=== PATIENT | male | born 1955 | race Caucasian/White ===

== ENCOUNTER 2018-02-05 18:54 | Emergency (ER) | payer OTHER ==
[2018-02-05 19:11] VITALS: O2SAT 97
[2018-02-05] MEDS ORDERED: SODIUM CHLORIDE 0.9% (FLUSH) 10 ML SYG IV PRN (19:11)
[2018-02-05] MEDS ORDERED: SODIUM CHLORIDE 0.9% 1000ML 1,000 ML IVS ONE ×2 (19:23→19:44)
[2018-02-05] MEDS ORDERED: ONDANSETRON INJ 4 MG/2 ML VIAL IV ONE (19:23)
--- NOTE | 2018-02-05 20:00 | RAD ---
EXAM DESCRIPTION: Chest,1 View CLINICAL HISTORY: chest pain COMPARISON: None. FINDINGS: A few calcified nodules measure 4 mm in the right lung. Cardiac silhouette is within normal limits. There is no focal parenchymal or pleural disease. Visualized osseous structures are within normal limits. IMPRESSION: No evidence of acute cardiopulmonary disease. Electronically signed by: Eyad Rm 02/05/2018 7:58 PM CDT
[2018-02-05] MEDS ORDERED: MORPHINE SULFATE INJ 10 MG/ML VIAL IV ONE (20:30)
--- NOTE | 2018-02-05 21:00 | ED.PDOC ---
History of Present Illness - General Chief Complaint: Exposure to Heat or Cold Stated Complaint: over heated dizzy and chest pain Time Seen by Provider: 02/05/18 19:22 Source: patient, RN notes reviewed, Vital Signs reviewed Exam Limitations: no limitations - History of Present Illness Timing/Duration: 4-6 hours Severity: moderate Improving Factors: rest Worsening Factors: movement Associated Symptoms: chest pain, headaches, malaise, nausea/vomiting, shortness of breath, weakness, other - pt reports that he was outside today at 2 pm until coming to the ED. Started to have sob, dizziness, generalized weakness and cotton mouth. Startes that feels like previous time he had heat exposure. Since cooling down has started to feel improved. Allergies/Adverse Reactions: Allergies Ampicillin Adverse Reaction (Intermediate, Verified 02/05/18 19:06) Review of Systems - Review of Systems Constitutional: States: weakness - non focal EENTM: States: no symptoms reported Respiratory: States: short of breath Cardiology: States: chest pain Gastrointestinal/Abdominal: States: nausea Musculoskeletal: States: muscle pain Skin: States: no symptoms reported Neurological: States: headache, weakness - generalized weakness, other - dizziness Endocrine: States: no symptoms reported Hematologic/Lymphatic: States: no symptoms reported Past Medical History (General) - Patient Medical History Hx Seizures: No Hx Stroke: No Hx Dementia: No Hx Asthma: No Hx of COPD: No Hx Cardiac Disorders: No Hx Congestive Heart Failure: No Hx Pacemaker: No Hx Hypertension: No Hx Thyroid Disease: No Hx Diabetes: No Hx Gastroesophageal Reflux: No Hx Renal Disease: No Hx Cancer: No Hx of HIV: No Hx Hepatitis C: No Hx MRSA: No Surgical History: no surgical history - Vaccination History Hx Tetanus, Diphtheria Vaccination: No Hx Influenza Vaccination: No Hx Pneumococcal Vaccination: No Immunizations Up to Date: No - Social History Hx Tobacco Use: No Hx Chewing Tobacco Use: No Hx Alcohol Use: Yes Hx Substance Use: No Hx Substance Use Treatment: No Hx Depression: No Feels Threatened In Home Enviroment: No Feels Threatened In a Relationship: No Hx Physical Abuse: No Hx Emotional Abuse: No Hx Suspected Abuse: No Family Medical History - Family History Mother Family History: Unknown Living Status: Unknown Hx Family Asthma: No Hx Family Congestive Heart Failure: No Physical Exam - Physical Exam General Appearance: Alert, Well Developed, Well Groomed Eye Exam: bilateral normal Ears, Nose, Throat: hearing grossly normal, normal ENT inspection, normal pharynx, other - dry membranes Neck: non-tender, full range of motion, supple, normal inspection Respiratory: chest non-tender, lungs clear, normal breath sounds, no respiratory distress, no accessory muscle use Cardiovascular/Chest: normal peripheral pulses, regular rate, rhythm, no edema, no gallop, no JVD Peripheral Pulses: radial,right: 2+, radial,left: 2+ Gastrointestinal/Abdominal: non tender, soft Back Exam: normal inspection, no CVA tenderness, no vertebral tenderness Extremity: normal range of motion, non-tender, normal inspection, no pedal edema , no calf tenderness Neurologic: portable machine cutter II-XII nml as tested, no motor/sensory deficits, alert, normal mood/affect, oriented x 3 Skin Exam: other - poor turgur Lymphatic: no adenopathy Progress - Progress Progress: 02/05/18 21:04 02/05/18 19:11 IV Care:Saline Lock per Protoc QSHIFT Telemetry .ONCE Sodium Chloride 0.9% (Flush) [Saline Flush Syringe] 10 ml IV PRN PRN EKG Stat Pulse Ox Stat Laboratory Results WBC 10.6 K/mm3 (4.8-10.8) 02/05/18 19:10 RBC 5.25 M/mm3 (4.70-6.10) 02/05/18 19:10 Hgb 18.1 gm/dL (14.0-18.0) H 02/05/18 19:10 Hct 51.2 % (42.0-52.0) 02/05/18 19:10 MCV 97.6 fl (80.0-94.0) H 02/05/18 19:10 MCH 34.4 pg (27.0-31.0) H 02/05/18 19:10 MCHC 35.3 g/dL (33.0-37.0) 02/05/18 19:10 RDW 13.6 % (11.5-14.5) 02/05/18 19:10 Plt Count 310 K/mm3 (130-400) 02/05/18 19:10 MPV 8.0 fl (7.40-10.4) 02/05/18 19:10 Absolute Neuts (auto) 8.20 K/uL (1.8-6.8) H 02/05/18 19:10 Absolute Lymphs (auto) 1.30 K/uL (1.0-3.4) 02/05/18 19:10 Absolute Monos (auto) 0.90 K/uL (0.2-0.8) H 02/05/18 19:10 Absolute Eos (auto) 0.10 K/uL (0.0-0.4) 02/05/18 19:10 Absolute Basos (auto) 0.10 K/uL (0.0-0.1) 02/05/18 19:10 Neutrophils % 77.7 % (42.0-78.0) 02/05/18 19:10 Lymphocytes % 12.0 % (20.0-50.0) L 02/05/18 19:10 Monocytes % 8.1 % (2.0-9.0) 02/05/18 19:10 Eosinophils % 1.1 % (1.0-5.0) 02/05/18 19:10 Basophils % 1.1 % (0.0-2.0) 02/05/18 19:10 PT 10.8 SECONDS (9.4-12.5) 02/05/18 19:10 INR 0.930 02/05/18 19:10 PTT (SP) 30.0 SECONDS (25.1-36.5) 02/05/18 19:10 Sodium 137 mmol/L (135-145) 02/05/18 19:10 Potassium 4.6 mmol/L (3.6-5.0) 02/05/18 19:10 Chloride 99 mmol/L (101-111) L 02/05/18 19:10 Carbon Dioxide 27 mmol/L (21-31) 02/05/18 19:10 Anion Gap 15.6 (12-18) 02/05/18 19:10 BUN 25 mg/dL (7-18) H 02/05/18 19:10 Creatinine 2.14 mg/dL (0.6-1.3) H 02/05/18 19:10 BUN/Creatinine Ratio 11.7 (10-20) 02/05/18 19:10 Random Glucose 100 mg/dL (70-105) 02/05/18 19:10 Serum Osmolality 278.3 mOsm/L (275-295) 02/05/18 19:10 Calcium 12.8 mg/dL (8.4-10.2) H* 02/05/18 19:10 Magnesium 2.2 mg/dL (1.8-2.5) 02/05/18 19:10 Total Bilirubin 0.7 mg/dL (0.2-1.0) 02/05/18 19:10 Direct Bilirubin < 0.1 mg/dL (0-0.2) 02/05/18 19:10 Indirect Bilirubin 0.6 mg/dL (0.2-0.8) 02/05/18 19:10 AST 27 IU/L (10-42) 02/05/18 19:10 ALT 30 IU/L (10-60) 02/05/18 19:10 Alkaline Phosphatase 78 IU/L (42-121) 02/05/18 19:10 Creatine Kinase 163 IU/L (38-174) 02/05/18 19:10 CK-MB (CK-2) 3.2 ng/mL (0.0-4.4) 02/05/18 19:10 CK-MB (CK-2) % Not Reportable 02/05/18 19:10 Troponin I < 0.02 ng/mL (0.01-0.05) 02/05/18 19:10 B-Natriuretic Peptide 60.8 pg/ml (0-100) 02/05/18 19:10 Serum Total Protein 8.8 gm/dL (6.4-8.2) H 02/05/18 19:10 Albumin 4.8 g/dl (3.2-5.5) 02/05/18 19:10 chest xray negative, pt improved after NS, WIll repeat lab work to rule after IV hydration. Pt wants to go home and does not wish to stay in the hospital for further obs/treatment 02/05/18 21:06 ekg shows NSR rate 81, pr 156, qrs 84, qtc 392 02/05/18 21:41 repeat trop normal; repeat Cr improving after IV fluids; discussed need for close f/u and oral hydration and avoidance of further heat exposure Departure - Departure Clinical Impression: Hypercalcemia due to a drug, Dehydration Heat exposure Qualifiers: Encounter type: initial encounter Qualified Code(s): T67.9XXA - Effect of heat and light, unspecified, initial encounter Acute renal failure Qualifiers: Acute renal failure type: unspecified Qualified Code(s): N17.9 - Acute kidney failure, unspecified Time of Disposition: 21:38 Disposition: Discharge to Home or Self Care Condition: Excellent Departure Forms: ED Discharge - Pt. Copy, Patient Portal Self Enrollment Instructions: DI for Heat Exhaustion and Heat Stroke Diet: resume usual diet Activity: ambulate only with walker, increase activity as tolerated Additional Instructions: Avoid tums, take an OTC acid lower medication like Zantac or Omeprazole for acid reflux; continue oral hydration over the next 48 hours and avoid repeat head exposure. f/u with pcp for recheck next week Critical Care Note - Critical Care Note Total Time (mins): 35
[2018-02-05 22:13] VITALS: BP 146/94; TEMP 97.8
== END 2018-02-05 22:12 | disposition home or self-care (01) ==
LOC: ER 18:54
DX: N17.9 Acute kidney failure, unspecified (principal); E86.0 Dehydration; T67.9XXA Effect of heat and light, unspecified, initial encounter; E83.52 Hypercalcemia; T50.905A Adverse effect of unspecified drugs, medicaments and biological substances, initial encounter; X30.XXXA Exposure to excessive natural heat, initial encounter; Y92.9 Unspecified place or not applicable
CPT/HCPCS: 36415; 71045; 80048; 80076; 82550; 82553; 82565; 83880; 84484; 85025; 85610; 85730; 93005; J2270; J2405; J7030